=== PATIENT | male | born 1960 | race Caucasian/White ===

== ENCOUNTER 2019-12-01 21:36 | Inpatient (IN) | payer OTHER ==
[~2019-12-01] VITALS: Ht 182.9 cm; Wt 114.8 kg
[~2019-12-01 21:36] MED LIST: ACETAZOLAMIDE250 M2 PO; ADDERALL 12.512.5 MG PO; CLONIDINE0.1 PO; LAMICTAL 25 MG25 M1 PO; PHENOBARBITAL32.4 M2 PO; VENLAFAXINE H37.5 M1 PO; VITAMIN B-12500 MCG PO
[2019-12-01 23:08] VITALS: BP 143/88
[2019-12-02 00:16] VITALS: BP 143/88
[2019-12-02 08:00] VITALS: BP 115/75
[2019-12-02] MEDS ORDERED: CATAPRES0.1 MG PO (12:19)
[2019-12-02] MEDS ORDERED: LAMOTRIGINE25 MG PO (12:21)
[2019-12-02 19:12] VITALS: BP 135/80
[2019-12-02 19:13] VITALS: BP 112/76
[2019-12-02 20:00] VITALS: BP 112/78
[2019-12-03 07:48] VITALS: BP 114/77
[2019-12-03 09:12] VITALS: BP 114/74
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
[2019-12-04 08:56] VITALS: BP 111/74
[2019-12-04 20:23] VITALS: BP 123/79
[2019-12-04 22:48] VITALS: BP 123/79
[2019-12-05 07:45] VITALS: BP 109/77
[2019-12-05 09:03] VITALS: BP 109/77
[2019-12-05 20:11] VITALS: BP 111/75
[2019-12-06 09:29] VITALS: BP 114/78
[2019-12-06 19:52] VITALS: BP 112/66
[2019-12-07 08:59] VITALS: BP 115/79
[2019-12-07 19:35] VITALS: BP 105/62
[2019-12-08 02:06] LABS: GLYCOHEMOGLOBIN (HGB A1C) 5.3 % (4.8-5.6)
[2019-12-08 07:27] VITALS: BP 118/80
[2019-12-08 19:59] VITALS: BP 124/85
[2019-12-09 08:59] VITALS: BP 111/74
[2019-12-09 20:19] VITALS: BP 110/77
[2019-12-10 13:22] VITALS: BP 105/74
[2019-12-10 19:50] VITALS: BP 122/79
[2019-12-11 08:46] VITALS: BP 117/77
[2019-12-11 19:35] VITALS: BP 140/91
[2019-12-12 07:46] VITALS: BP 119/83
[2019-12-12 19:58] VITALS: BP 126/79
[2019-12-12 22:00] VITALS: BP 126/79
[2019-12-13 08:52] VITALS: BP 124/82
[2019-12-13 20:33] VITALS: BP 122/79
[2019-12-14 17:13] VITALS: BP 122/77
[2019-12-14 20:30] VITALS: BP 129/73
[2019-12-15 07:53] VITALS: BP 111/75
[2019-12-15 15:59] VITALS: BP 111/75
[2019-12-15 16:59] LABS: HEMATOCRIT 42.1 % (42.0-52.0); HEMOGLOBIN 14.1 gm/dL (14.0-18.0); MCH 31.3 pg (26.0-34.0); MCHC 33.6 g/dL (28.0-37.0); MCV 93.2 fL (80.0-100.0); RBC 4.52 mil/uL (4.50-6.00); RDW 13.8 % (10.5-14.5); WBC 5.2 thou/uL (4.0-11.0)
[2019-12-15 17:07] LABS: CALCIUM 8.9 mg/dL (8.5-10.1); CREATININE 0.7 mg/dL (0.7-1.3); POTASSIUM 3.8 mmol/L (3.5-5.1)
[2019-12-15 19:35] VITALS: BP 123/66
[2019-12-16 06:38] VITALS: BP 111/72
[2019-12-16 08:00] VITALS: BP 111/72
[2019-12-16] MEDS ORDERED: CATAPRES0.1 MG PO (09:07)
[2019-12-16 09:10] VITALS: BP 111/72
[2019-12-16] MEDS ORDERED: LAMICTAL 25 MG25 MG PO (09:10)
[2019-12-16] MEDS ORDERED: RISPERDAL2 MG PO ×2 (09:11)
[2019-12-16] MEDS ORDERED: VITAMIN D325 MC1 PO (09:12)
[2019-12-16 09:55] VITALS: BP 111/72
== END 2019-12-16 15:20 | DRG 885 ==
LOC: SBH
PROVIDERS: Internal Medicine; ADMIT Psychiatry & Neurology Psychiatry; ATTEND Psychiatry & Neurology Psychiatry
DX: F23 Brief psychotic disorder (principal); F84.0 Autistic disorder; E11.9 Type 2 diabetes mellitus without complications; G40.909 Epilepsy, unspecified, not intractable, without status epilepticus; I10 Essential (primary) hypertension; J45.909 Unspecified asthma, uncomplicated; R41.89 Other symptoms and signs involving cognitive functions and awareness; E66.9 Obesity, unspecified; Z68.34 Body mass index [BMI] 34.0-34.9, adult
CPT/HCPCS: 10880

== ENCOUNTER 2021-02-11 17:09 | Emergency (ER) | payer OTHER ==
[~2021-02-11] VITALS: Ht 190.5 cm; Wt 138.3 kg
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
[~2021-02-11 17:09] MED LIST changes: +CATAPRES0.1 MG PO; +LAMICTAL 25 MG25 MG PO; +LAMOTRIGINE25 MG PO; +RISPERDAL2 MG PO; +VITAMIN D325 MC1 PO
[2021-02-11 17:11] VITALS: BP 142/93
[2021-02-11] MEDS ORDERED: TRAZODONE HCL50 MG PO (17:18)
[2021-02-11] MEDS ORDERED: LISINOPRIL10 MG PO (17:23)
[2021-02-11] MEDS ORDERED: MOBIC7.5 MG PO (17:58)
== END 2021-02-11 18:23 | disposition home or self-care (01) ==
LOC: ER 17:09
DX: S39.012A Strain of muscle, fascia and tendon of lower back, initial encounter (principal); E11.9 Type 2 diabetes mellitus without complications; I10 Essential (primary) hypertension; J45.909 Unspecified asthma, uncomplicated; Z79.899 Other long term (current) drug therapy; X58.XXXA Exposure to other specified factors, initial encounter; Y93.89 Activity, other specified; Y92.89 Other specified places as the place of occurrence of the external cause; Y99.8 Other external cause status